=== PATIENT | female | born 1965 | race Caucasian/White ===

== ENCOUNTER 2018-12-23 22:27 | Emergency (ER) | payer MEDICAID ==
[~2018-12-23] VITALS: Ht 162.6 cm; Wt 118.8 kg
[2018-12-23 22:37] VITALS: BP 134/95
--- NOTE | 2018-12-23 23:49 | NUR ---
PT AMBULATED TO BED #12
--- NOTE | 2018-12-24 | NUR ---
52 Y/O FEMALE PRESENTS TO ED, C/O LEFT LEG PAIN 01/04, BURNING, SHAPR. PT STATES, PAIN STARTED 2 DAYS AGO, ICE PACKS WERE ABLE TO ALLEVIATE PAIN FOR A SHORT WHILE. PT TOOK NORCO 10 YESTERDAY BUT WAS INEFFECTIVE. LEFT LEG HAS +1 PITTING EDEMA. FEET BILATERAL STRONG PEDAL PULSE, FULL RANGE OF MOTION, SENSATION INTACT. PT HAS HX OF NEUROPATHY, GOUT, PITUITARY TUMOR, AND CHF. PT STATES SHE STARTED TAKING LASIX 2 DAYS AGO. PT ABLE TO AMBULATE WITH A SLOW STEADY GAIT. PT VSS. DR NAVARRO AWARE. WILL CONTINUE TO MONITOR.
--- NOTE | 2018-12-24 01:00 | NUR ---
PT IS AWAKE, LAYING ON BED. C/O OF LEFT LEG SHARP PAIN, 01/04. DR PATTON AWARE. WILL CONTINUE TO MONITOR.
[2018-12-24 03:14] VITALS: BP 120/68
--- NOTE | 2018-12-24 03:14 | NUR ---
Patient discharged with v/s stable. Written and verbal after care instructions given and explained. Patient alert, oriented and verbalized understanding of instructions. Ambulatory with steady gait. All questions addressed prior to discharge. ID band removed. Patient advised to follow up with PMD. Rx of GABAPENTIN given. Patient educated on indication of medication including possible reaction and side effects. Opportunity to ask questions provided and answered.
== END 2018-12-24 03:14 | disposition home or self-care (01) ==
LOC: MED 22:27
DX: M79.605 Pain in left leg (principal); R20.0 Anesthesia of skin; E11.40 Type 2 diabetes mellitus with diabetic neuropathy, unspecified; I50.9 Heart failure, unspecified
CPT/HCPCS: 82948; 93971; 99284; Q0092